=== PATIENT | male | born 1965 | race Caucasian/White ===

== ENCOUNTER → 2016-11-16 | Day surgery (SDC) | payer OTHER ==
[~2016-11-16] VITALS: Ht 177.8 cm; Wt 104.3 kg
--- NOTE | 2016-11-17 08:37 | Operative Report ---
Operative/Inv Procedure Report Surgery Date: 11/16/16 Name of Procedure: Right distal biceps tendon repair Pre-Operative Diagnosis: Right distal biceps tendon rupture Post-Operative Diagnosis: Right distal biceps tendon rupture Estimated Blood Loss: scant Surgeon/Retail Store Associate: JOZEF DUNCAN,Devendra Aguilar PA-C Anesthesia: laryngeal mask airway IV Fluids: 1100mL Implants: Arthrex distal biceps button and tenodesis screw (7mm) Drains: None Specimens: None Tourniquet: 105min Complications: None Condition: Stable Operative/Procedure Note Note: INDICATION FOR PROCEDURE: Ruddy English is a 51 year-old right hand dominant male who presented with right anterior arm pain and bruising following an injury on 11/07/16. He was attempting to lift a picnic table when he felt a pop following by acute pain in the anterior elbow. He was seen by his PCP, who referred him to [facility] for further evaluation. An MRI was obtained that confirmed a full- thickness tear of the distal biceps tendon with 5cm of retraction. After discussing treatment options and the risks of surgery, Mr. English has opted to proceed with open repair of the right distal biceps tendon. OPERATIVE REPORT: Ruddy English arrived at [facility] on 11/16/16. He was met in the pre- operative area, where his medical history was reviewed and the operative extremity marked. He declined a region nerve block. He was taken into the operating room and placed supine on the OR table. The right upper extremity was supported by a dedicated hand table. A time-out procedure was performed, in which the patient, the operative extremity, and the planned procedure were verified. SCDs were applied to bilateral lower legs, but no additional VTE chemoprophylaxis was administered. He was induced under general anethesia and perioperative IV antibiotics were given. A nonsterile tourniquet was applied to the right upper arm and the extremity was prepped and draped in the usual sterile fashion. An esmarch bandage was used to exsanguinate the arm, and the tourniquet raised to 250mmHg. With the arm fully supinated, a transverse incision was made in the flexion crease of the elbow. The was curved and extended 3cm distal over the lateral forearm, along the medial border of the brachioradialis muscle. The incision was taken through the skin and subcutaneous tissues, and scissors were then used to carefully dissect the deep tissues. The lateral antebrachial cutaneous nerve was identified and carefully retracted laterally. The patient had several large anterior veins that were carefully mobilized. The lacertus fibrosis was carefully opened, and the biceps tendon tear noted in the proximal portion of the incision. This was carefully released and the distal 2 cm debridement. A fiberwire suture was whip-stitched through the distal 3cm of the tendon. The short head of the biceps appeared to be in continuity with the lacertus, and was debrided only as needed for mobilization of the long head. It was easily pulled distally. We then dissected the tissues over the anterior proxial radius with the arm fully supinated. The interval between brachioradialis and pronator teres was identified and the radius was palpable, confirmed with supination/ pronation. A small K-wire was placed in the radius to confirm the location with fluoro, however the location was too proximal. The dissection was carefully taken more distally, until the radial tuberosity was identified; this was confirmed with fluoro. A guide pin was drilled through the tuberosity with the arm fully supinate to protect the PIN. This was followed by a size 8 reamer that was taken through the anterior cortex only. The whipstitched sutures in the tendon were then passed through the tenodesis button,which was placed on the posterior cortex of the radius and flipped, allowing the tendon to be carefully pulled into the hole in the tuberosity. Once fully tension with the elbow at apprximately 30 deg of flexion, a tenodesis screw was placed for further fixation. The elbow was gently ranged and full extension obtained without excess tension on the repair. The suture was passed through the tendon with a free needle and tied. The tourniquet was released and hemostasis was verified. The skin surrounding the incision was infiltrated with 0.5% marcaine without epinephrine for local analgesia. The wound was copiously irrigated with normal saline with bacitracin. The wound was then closed using #2-0 vicryl for the subcutaneous layer and #3-0 nylon interrupted for skin. The incision was dressed with xeroform, gauze, ABD pad, and secured with webril. Patient was placed in a well-padded long-arm posterior splint secured with an DARRON wrap. He was then woken from anesthesia and taken from the OR to the recovery room in stable condition.
== END ==
LOC: STS 03:08
DX: S46.211A Strain of muscle, fascia and tendon of other parts of biceps, right arm, initial encounter (principal); S46.201A Unspecified injury of muscle, fascia and tendon of other parts of biceps, right arm, initial encounter; X50.0XXA Overexertion from strenuous movement or load, initial encounter
CPT/HCPCS: J0131; J0690; J2250